=== PATIENT | female | born 1945 | race Hispanic/Latino ===

== ENCOUNTER 2019-05-08 10:52 | Outpatient (CLI) | payer MEDICARE, MEDICAID ==
--- NOTE | 2019-05-08 13:55 | CT ---
CT ABDOMEN AND PELVIS WITH IV AND ORAL CONTRAST: INDICATIONS: Abdominal pain. Left lower quadrant pain. COMPARISON: CT abdomen and pelvis from 01/12/2012. FINDINGS: Lung bases are clear. The liver, spleen, and pancreas are unremarkable. The stomach and duodenum are unremarkable. The adrenal glands appear normal. The kidneys show no evidence of hydronephrosis. There is a cystic lesion involving the anterior left kidney, which has increased in size from the prior exam and now measures approximately 1.7 cm. Ther e are other tiny, low density foci in both kidneys, which are too small to characterize but are consi stent with tiny cysts and appear stable. The urinary bladder is mildly distended, poorly evaluated d ue to spray artifact from the left hip prosthesis. Small bowel loops are of normal caliber. Colon unremarkable. Aorta of normal caliber with atheroscl erotic calcification. No adenopathy. Images through the pelvis show a mildly prominent uterus, which is stable from the prior exam. The m yometrium is mildly heterogeneous. There is suggestion of a small right ovarian cyst, measuring 1.2 cm. The pelvis is obscured due spray artifact from the left hip prosthesis. There is a new anterior abdominal wall hernia seen along the anterior abdominal wall when compared to the prior exam. This may represent a spigelian hernia. The hernia sac in the subcutaneous tissues measures 2.8 cm and contains mesenteric fat. There is density in the subcutaneous adipose tissue anteriorly, in the midline, just below the umbili cus, measuring approximately 1.5 cm. This is nonspecific and may be postoperative in nature. It is not fluid dense. IMPRESSION: 1. Evidence of new hernia involving the anterolateral abdominal wall, on the left, when compared to the prior examination. 2. Focal density in the anterior subcutaneous tissues, midline, just inferior to the umbilicus, whic h is nonspecific. 3. Prominent heterogeneous uterus is stable. Question small right ovarian cyst. 4. Renal cystic lesions, as described above. POS: [facility]
[2019-05-08] MEDS ORDERED: ISOVUE-370 76%-LOCM 1 ML ONE (16:27)
== END 2019-05-08 10:53 | disposition home or self-care (01) ==
LOC: BICCT 10:52
PROVIDERS: ATTEND Surgery
DX: R19.04 Left lower quadrant abdominal swelling, mass and lump (principal); K43.9 Ventral hernia without obstruction or gangrene; N28.1 Cyst of kidney, acquired
CPT/HCPCS: 74177; 82565; Q9966

== ENCOUNTER 2019-07-04 10:14 | Inpatient (IN) | payer MEDICARE, MEDICAID ==
[2019-07-04] MEDS ORDERED: Ketorolac Tromethamine 30 MG/ML VIAL ONE (10:42)
[2019-07-04] MEDS ORDERED: Fentanyl 100 MCG/2 ML VIAL ONE (10:44)
[2019-07-04 11:04] LABS: #Eosinphils 0.3 thou/uL (0.0-0.7); #Lymphocytes 1.8 thou/uL (1.20-3.40); #Monocytes 0.5 thou/uL (0.11-0.59); #Neutrophils 4.5 thou/uL (1.40-6.50); %Basophils 0.3 % (0.0-1.0); %Eosinophils 4.5 % (0.0-10.0); %Lymphocytes 25.6 % (21.0-51.0); %Monocytes 6.5 % (0.0-10.0); %Neutrophils 63.2 % (42.0-75.0); Hemoglobin 13.8 g/dL (12.0-16.0); Mean Corpuscular HGB CONC 34.2 g/dL (32.0-36.0); Mean Corpuscular Hemoglobin 30.9 pg (27.0-31.0); Mean Corpuscular Volume 90.3 fL (78.0-98.0); Mean Platelet Volume 8.9 fL (7.4-10.4); Platelet Count 189 thou/uL (130-400); Red Blood Cell (RBC) Count 4.46 mill/uL (4.20-5.40); White Blood Cell (WBC) Count 7.1 thou/uL (4.8-10.8)
[2019-07-04 11:28] LABS: Anion Gap 12 mmol/L (10-20); BUN (Urea Nitrogen) 12 mg/dL (9.8-20.1); Calc. Creatinine Clearance 47 mL/min (70-130); Calcium 9.5 mg/dL (7.8-10.44); Carbon Dioxide 28 mmol/L (23-31); Chloride 104 mmol/L (98-107); Estimated GFR-MDRD 67; Glucose 113 mg/dL (83-110); Potassium 4.3 mmol/L (3.5-5.1); Sodium 140 mmol/L (136-145)
[2019-07-04] MEDS ORDERED: Bupivacaine/Epinephrine 0.25% 30 ML VIAL ONE (11:45)
[2019-07-04] MEDS ORDERED: Lidocaine 2% PF 5 ML VIAL ONE (11:45)
[2019-07-04] MEDS ORDERED: PHENYLEPHRINE-NS 100 MCG/ML 10 ML SYRINGE ONE (11:51)
[2019-07-04] MEDS ORDERED: Ondansetron PF 4 MG/2 ML Vial ONE (11:51)
[2019-07-04] MEDS ORDERED: Rocuronium Bromide 10 MG/ML (10ML VIAL) ONE (11:51)
[2019-07-04] MEDS ORDERED: Lidocaine 1% PF 5 ML VIAL ONE (11:51)
[2019-07-04] MEDS ORDERED: Glycopyrrolate 0.2 MG/ML 5 ML SYRINGE ONE (11:51)
[2019-07-04] MEDS ORDERED: Dexamethasone 20 MG/5 ML VIAL ONE (11:51)
[2019-07-04] MEDS ORDERED: Phenylephrine HCL 10 MG/ML VIAL ONE (12:30)
[2019-07-04] MEDS ORDERED: HYDROcodone/Acetaminophen 5/325 mg Tablet ONE (15:32)
[2019-07-04] MEDS ORDERED: Morphine 2 MG/ML SYRINGE SLOW IVP PRN (17:45)
[2019-07-04 18:04] VITALS: BMI 33.7
[2019-07-04] MEDS ORDERED: traMADol HCl 50 MG TAB PO PRN (18:54)
[2019-07-04] MEDS: Gabapentin 300 MG CAP PO SCH (19:50)
[2019-07-04] MEDS ORDERED: Famotidine/PF 20 mg/2ml Vial SLOW IVP SCH (21:00)
[2019-07-04] MEDS ORDERED: Amlodipine 5 MG TAB PO SCH (21:00)
[2019-07-04] MEDS ORDERED: Calcium Carbonate 500 MG ChewTAB PO PRN (21:13)
[2019-07-05] MEDS: HYDROcodone/Acetaminophen 5/325 mg Tablet PO PRN ×3 (06:23→18:29)
[2019-07-05] MEDS: Gabapentin 300 MG CAP PO SCH ×2 (07:12→16:13)
[2019-07-05] MEDS ORDERED: Carvedilol 6.25 MG TAB PO SCH (09:00)
[2019-07-05] MEDS ORDERED: Sodium Chloride 0.9% 10 ML ONE (14:02)
[2019-07-05] MEDS ORDERED: Fentanyl 100 MCG/2 ML VIAL ONE ×2 (14:14→14:18)
[2019-07-05 15:55] VITALS: BP 144/68; TEMP 97.9
--- NOTE | 2019-07-06 23:11 | EKG ---
Test Reason : PREOP Blood Pressure : / mmHG Vent. Rate : 062 BPM Atrial Rate : 062 BPM P-R Int : 158 ms QRS Dur : 096 ms QT Int : 452 ms P-R-T Axes : 065 -06 102 degrees QTc Int : 458 ms Normal sinus rhythm with sinus arrhythmia Low voltage QRS T wave abnormality, consider lateral ischemia Abnormal ECG Confirmed by Beverly KIMBLE ([id number]) on 07/06/2019 11:10:37 PM Referred By: SHANKAR Confirmed By:Beverly KIMBLE
--- NOTE | 2019-07-13 13:13 | PDOC.OP ---
Operative Note - Operative Note Operative Note: PROCEDURE: Repair of incarcerated ventral incisional hernia with mesh SURGEON: Prabhu Gonzales M.D. DATE: 07/04/2019 PREOPERATIVE DIAGNOSIS: Incarcerated ventral incisional hernia POSTOPERATIVE DIAGNOSIS: Incarcerated ventral incisional hernia HISTORY: Patient with multiple hernias status post open and laparoscopic repair. She developed a tender nonreducible hernia at a lateral port site and desires repair of this. Open repair was recommended due to the incarcerated nature of the hernia. PROCEDURE IN DETAIL: After informed consent was obtained and appropriate preoperative antibiotics administered the patient was taken to the operative she was placed in supine position and general anesthesia was administered. She was prepped and draped in standard sterile fashion and local anesthesia infused the skin and subcutaneous tissues overlying the left lateral hernia site. A skin incision was made and dissection was carried down to the external oblique aponeurosis. Some fat was found herniating through this and the incision extended in the direction of the fibers. A large hernia was identified in the space between the internal and external oblique. This was dissected free of the surrounding tissues and was found to be protruding through a 2 cm defect in the internal oblique and transversalis. Once the adhesions were taken down the entire hernia sac, which contained fat only, was able to be reduced through the hernia defect. The space was then bluntly developed in the preperitoneal space by digital dissection and a 6.4 cm ventral X patch was placed into the preperitoneal space and confirmed to be expanded and flat against the muscle. The internal oblique fascia was then reapproximated with braided permanent suture incorporating the central strap into the closure. The external oblique fascia was also closed under direct vision with braided permanent suture. Irrigation was carried out between each layer of closure and additional local anesthesia infused into the muscle and subcutaneous tissues for postoperative pain control. The subcutaneous tissues were reapproximated with 3-0 Monocryl suture and the skin was closed with 4-0 subcuticular Monocryl suture. Dermabond dressings were placed and the patient was taken to recovery in good condition. Estimated blood loss is minimal. There were no complications. There were no specimens
== END 2019-07-05 18:57 | disposition home or self-care (01) | DRG 355 ==
LOC: SDC 10:14 → SURG A 16:20 → SDC 17:35
PROVIDERS: ADMIT Surgery; ATTEND Surgery
PROC: 0WUF0JZ Supplement Abdominal Wall with Synthetic Substitute, Open Approach (ICD-10-PCS; principal; 2019-07-04)
DX: K43.9 Ventral hernia without obstruction or gangrene (principal); I10 Essential (primary) hypertension; K21.9 Gastro-esophageal reflux disease without esophagitis; M19.90 Unspecified osteoarthritis, unspecified site; M81.0 Age-related osteoporosis without current pathological fracture; Z96.642 Presence of left artificial hip joint; Z87.891 Personal history of nicotine dependence; Z79.899 Other long term (current) drug therapy; Z90.49 Acquired absence of other specified parts of digestive tract
CPT/HCPCS: 36415; 80048; 85025; 93005; 93010; J0131; J0690; J1100; J1885; J2001; J2370; J2405; J3010; S0028

== ENCOUNTER 2019-08-15 17:26 | Inpatient (IN) | payer MEDICARE, MEDICAID ==
[~2019-08-15 17:26] MED LIST: Iopamidol-370 76% 500 ML 1 ML ONE
[2019-08-15] MEDS ORDERED: Morphine 4 MG/ML VIAL ONE ×2 (17:46→22:48)
[2019-08-15] MEDS ORDERED: Ondansetron PF 4 MG/2 ML Vial ONE (17:46)
[2019-08-15 18:11] LABS: #Eosinphils 0.3 thou/uL (0.0-0.7); #Lymphocytes 2.1 thou/uL (1.20-3.40); #Monocytes 0.6 thou/uL (0.11-0.59); #Neutrophils 7.3 thou/uL (1.40-6.50); %Basophils 0.5 % (0.0-1.0); %Eosinophils 2.8 % (0.0-10.0); %Lymphocytes 20.1 % (21.0-51.0); %Neutrophils 70.7 % (42.0-75.0); Mean Corpuscular HGB CONC 33.4 g/dL (32.0-36.0); Mean Corpuscular Volume 89.7 fL (78.0-98.0); Mean Platelet Volume 9.1 fL (7.4-10.4); Platelet Count 200 thou/uL (130-400); Red Blood Cell (RBC) Count 4.33 mill/uL (4.20-5.40); White Blood Cell (WBC) Count 10.2 thou/uL (4.8-10.8)
[2019-08-15 18:16] LABS: PTT 24.7 SEC (22.9-36.1); Prothrombin Time 13.1 SEC (12.0-14.7)
--- NOTE | 2019-08-15 18:41 | RAD ---
Radiograph left leg tibia-fibula 2 views: 08/15/2019 HISTORY: 74-year-old female with acute traumatic left leg pain due to fall FINDINGS: The tibial plateau and fibular head are excluded from the [id number] on the frontal projection. On the lateral view, comminuted fracture of the distal femur is demonstrated. No fracture of the tibia or fibula is identified. Diffuse osteopenia. IMPRESSION: 1. Proximal tibia and fibula excluded from the [id number] on frontal projection. 2. No fracture of tibia or fibula identified.
[2019-08-15 18:42] LABS: ALT (SGPT) 11 U/L (8-55); AST (SGOT) 21 U/L (5-34); Albumin 4.5 g/dL (3.4-4.8); Alkaline Phosphatase 68 U/L (40-110); Anion Gap 14 mmol/L (10-20); BUN (Urea Nitrogen) 15 mg/dL (9.8-20.1); Bilirubin, Total 1.3 mg/dL (0.2-1.2); Calc. Creatinine Clearance 0 mL/min (70-130); Calcium 9.7 mg/dL (7.8-10.44); Carbon Dioxide 25 mmol/L (23-31); Chloride 103 mmol/L (98-107); Estimated GFR-MDRD 59; Globulin 3.2 g/dL (2.4-3.5); Glucose 99 mg/dL (83-110); Potassium 3.7 mmol/L (3.5-5.1); Protein, Total 7.7 g/dL (6.0-8.3); Sodium 138 mmol/L (136-145)
--- NOTE | 2019-08-15 18:43 | RAD ---
Radiograph left knee 2 views: 08/15/2019 6:16 PM HISTORY: 74-year-old female status post acute traumatic injury due to fall FINDINGS: Significantly displaced, angulated comminuted fracture of distal femoral metaphysis. Anterior angulat ion of major fracture apex. Slight foreshortening. No fracture extension to femoral tibial articular surface identified. No dislocation of knee joint. Tibial plateau appears to be grossly inta ct. Fibular head appears to be intact. Suprapatellar small hematoma. IMPRESSION: Acute, traumatic, comminuted, significantly displaced and angulated fracture of the distal femur.
--- NOTE | 2019-08-15 18:45 | RAD ---
Radiograph pelvis one view: DATE: 08/15/2019 HISTORY: 74-year-old female with acute traumatic pelvic pain due to fall FINDINGS: Left hip replacement metallic prosthesis. No evidence of dislocation. Pelvic ring appears to be gross ly intact, with no grossly displaced fracture identified. However, the osteopenia and overlying bowel gas could obscure a fracture, especially of the sacrum. IMPRESSION: 1. No acute fracture identified. 2. Status post left hip replacement arthroplasty.
--- NOTE | 2019-08-15 18:49 | RAD ---
Exam: Left femur 2 views: HISTORY: Injury with pain following a trip and fall FINDINGS: Total left hip replacement. Very markedly comminuted displaced and angulated fracture of the distal f emoral metadiaphysis with marked posterior angulation and considerable resultant deformity. IMPRESSION: Very markedly displaced comminuted fracture of the distal femur including the metadiaphysis with claudette ed posterior angulation, foreshortening, and severe deformity.
[2019-08-15] MEDS ORDERED: Ketamine 50 MG/ML (10ML VIAL) ONE (19:29)
[2019-08-15] MEDS ORDERED: Fentanyl 100 MCG/2 ML VIAL ONE (21:02)
--- NOTE | 2019-08-15 21:59 | RAD ---
Exam: Left femur 2 views: HISTORY: Post reduction FINDINGS: Again noted is extensively comminuted displaced fracture through the distal femoral metadiaphysis wit h persistent foreshortening and malalignment but with less angulation deformity. Evidence for fat within the knee joint. IMPRESSION: Overall improvement in the position and alignment of the markedly comminuted distal femoral fracture with some persistent displacement and angulation. Evidence for fat within the knee joint fluid with a fat fluid level.
--- NOTE | 2019-08-15 22:39 | CT ---
Exam: CT angiogram left lower extremity with 3-D rendering: HISTORY: Comminuted distal femoral fracture. No dorsalis pedis pulse FINDINGS: Very markedly comminuted markedly displaced fracture of the distal femoral metadiaphysis. There is a fat fluid layer within the knee joint. Extensive soft tissue swelling around the fracture or evidence for posttraumatic hemorrhagic fluid. No evidence for traumatic injury of the superficial fem oral artery at the level of the fracture. The upper common femoral and superficial femoral arteries are somewhat poorly seen because of dense s usceptibility artifact from the metal. There is a [id number] stenosis, using Nascet Criteria, at the left common femoral artery. The superficial femoral artery is overall small in caliber with mu ltiple mid to high-grade areas of stenosis with associated calcified plaques. There are also multiple mid to high-grade stenosis at the level of the popliteal artery. There is near occlusion wit h associated calcified plaque of the anterior tibial artery. There is a very high-grade stenosis at the origin of the tibio-peroneal trunk. There is a very poorly defined peroneal artery. No evidence f or associated vascular injury at the site of the fracture. The exam did not completely include the calf or ankle. IMPRESSION: No evidence for associated arterial vascular injury at the site of the fracture. Extensive multilevel moderate to very severe stenotic changes including the left common femoral arter y, superficial femoral artery, popliteal artery, anterior tibial artery, tibial-peroneal trunk, and posterior tibial and peroneal arteries, which may well account for clinical absent pulse at the dorsa lis pedis artery.
[2019-08-15] MEDS ORDERED: Dextrose 5% in Water 1,000 ML IV PRN (22:56)
[2019-08-15] MEDS ORDERED: Dextrose 50% Abboject 50 ML SYRINGE SLOW IVP PRN (22:56)
[2019-08-15] MEDS ORDERED: Morphine 2 MG/ML SYRINGE SLOW IVP PRN (22:56)
[2019-08-15] MEDS ORDERED: Ondansetron ODT 4 MG TAB PO PRN (22:56)
[2019-08-15] MEDS ORDERED: hydrALAZINE 20 MG/ML VIAL SLOW IVP PRN (22:56)
[2019-08-15] MEDS ORDERED: Ondansetron PF 4 MG/2 ML Vial IVP PRN ×2 (22:56→23:02)
[2019-08-15] MEDS ORDERED: Cyclobenzaprine 10 MG TAB ONE (22:57)
[2019-08-15] MEDS ORDERED: Cyclobenzaprine 10 MG TAB PO PRN (23:04)
[2019-08-15 23:23] LABS: Phosphorus 2.9 mg/dL (2.3-4.7)
--- NOTE | 2019-08-15 23:30 | RAD ---
EXAM: Chest one view: HISTORY: Preoperative evaluation COMPARISON: 01/13/2012 FINDINGS: Stable old granulomatous disease. Heart size: Within normal limits. Lungs: Clear of acute process. No evidence for confluent pneumonia, pleural effusion, acute edema, or pneumothorax, or other signifi cant acute process. IMPRESSION: No significant acute intrathoracic disease. Atherosclerosis. Stable exam.
--- NOTE | 2019-08-15 23:31 | RAD ---
Exam: Left shoulder 3 views: HISTORY: Injury from a fall, pain COMPARISON: 03/31/2015 FINDINGS: Bony demineralization. Arthrosis and degenerative changes of the A/C joint and glenohumeral joint. No acute fracture or dislocation. IMPRESSION: Stable left shoulder. Bony demineralization. No acute fracture or dislocation.
[2019-08-16] MEDS: traMADol HCl 50 MG TAB PO SCH ×4 (01:14→18:58)
[2019-08-16] MEDS: Acetaminophen 1,000 MG in Premix Bag 1 BAG IVPB SCH ×4 (01:14→18:58)
[2019-08-16] MEDS: Sodium Chloride 0.9% 1,000 ML IV SCH ×2 (01:15→14:46)
[2019-08-16 01:37] VITALS: BMI 24.0
[2019-08-16] MEDS ORDERED: Potassium Phosphate 15 MMOL in Sodium Chloride 0.9% 250 ML 100 ML IVPB SCH (02:15)
[2019-08-16] MEDS ORDERED: Magnesium Sulfate 2 GM in Sodium Chloride 0.9% 100 ML IVPB SCH (02:15)
[2019-08-16] MEDS ORDERED: Magnesium 2 GM/50 ML 2 GM in Premix Bag 1 BAG IVPB SCH (02:45)
[2019-08-16 05:38] LABS: #Lymphocytes 1.9 thou/uL (1.20-3.40); #Monocytes 0.7 thou/uL (0.11-0.59); #Neutrophils 4.8 thou/uL (1.40-6.50); %Basophils 0.4 % (0.0-1.0); %Eosinophils 0.5 % (0.0-10.0); %Lymphocytes 25.4 % (21.0-51.0); %Monocytes 9.3 % (0.0-10.0); %Neutrophils 64.4 % (42.0-75.0); Hemoglobin 11.2 g/dL (12.0-16.0); Mean Corpuscular HGB CONC 33.8 g/dL (32.0-36.0); Mean Corpuscular Hemoglobin 30.3 pg (27.0-31.0); Mean Corpuscular Volume 89.5 fL (78.0-98.0); Mean Platelet Volume 9.2 fL (7.4-10.4); Platelet Count 181 thou/uL (130-400); RBC Distribution Width 12.1 % (11.5-14.5); White Blood Cell (WBC) Count 7.4 thou/uL (4.8-10.8)
[2019-08-16 05:58] LABS: Anion Gap 13 mmol/L (10-20); BUN (Urea Nitrogen) 18 mg/dL (9.8-20.1); Calc. Creatinine Clearance 42 mL/min (70-130); Carbon Dioxide 26 mmol/L (23-31); Chloride 100 mmol/L (98-107); Estimated GFR-MDRD 47; Glucose 117 mg/dL (83-110); Magnesium 3.4 mg/dL (1.6-2.6); Phosphorus 5.2 mg/dL (2.3-4.7); Potassium 3.8 mmol/L (3.5-5.1); Sodium 135 mmol/L (136-145)
[2019-08-16] MEDS ORDERED: Ibuprofen 200 MG TAB PO SCH (06:00)
--- NOTE | 2019-08-16 07:11 | HP ---
This is Funmilayo Barroso NP dictating a report for Prabhu Gonzales MD. CONSULTS: Orthopedic Surgery, Dr. Freitas. HISTORY OF PRESENT ILLNESS: This is a 74-year-old female, who lives in her home alone who reports falling from standing. Patient denies feeling weak, dizzy, or having any chest pain or shortness of breath prior to falling. Patient states she was attempting to move a chair when she fell, landing on her left leg. Patient reported immediate pain. Patient was evaluated in the emergency room and was found to have a left distal comminuted femur fracture. The fracture was reduced in the emergency room and a post CTA scan was obtained. ER reported patient did have diminished pulse and cool extremity before the reduction. Patient also complains of left shoulder pain. PAST MEDICAL HISTORY: Hypertension and hyperlipidemia. SURGICAL HISTORY: Hernia repair in June of 2019, left hip replacement. ALLERGIES: NO KNOWN DRUG ALLERGIES. CURRENT MEDICATIONS: Tramadol 50 mg p.r.n. SOCIAL HISTORY: Patient lives alone, denies alcohol use, former tobacco use approximately 10 years ago. Patient ambulates without any assistance. REVIEW OF SYSTEMS: A 10-point review of systems is negative unless otherwise indicated in the above HPI. PHYSICAL EXAMINATION: VITAL SIGNS: Blood pressure 107/79, pulse 98, respirations 16, SpO2 of 97% on 2 L nasal cannula, and temperature 98.2. GENERAL: Elderly female, English-speaking only, mail clerk at bedside, in no acute distress. HEENT: Head is atraumatic and normocephalic. Pupils are equal, bright, bilateral, extraocular muscles intact, mucous membranes moist. NECK: Normal range of motion. No cervical tenderness. Trachea midline. RESPIRATORY: Good inspiratory and expiratory effort. Bilateral breath sounds clear, no wheezing, rales, or rhonchi. CARDIOVASCULAR: Regular rate, regular rhythm, no murmurs. ABDOMEN: Soft, nontender, and nondistended. BACK: Normal inspection, normal range of motion, no spine tenderness. EXTREMITIES: Moves all extremities, positive sensation and movement intact in all extremities. Cap refill less than 2 seconds in left lower extremity, splint to left lower extremity in place. DIAGNOSTICS: 1. Left tib-fib x-ray, no fracture of the tibia or fibula identified. 2. Left femur x-ray, very markedly displaced comminuted fracture of the distal femur including metaphysis with marked posterior angulation, foreshortening, and severe deformity. 3. Left knee x-ray, displaced and angulated fracture of the distal femur. 4. Pelvis x-ray, no acute fracture identified, status post left hip replacement arthroplasty. 5. Postreduction left femur x-ray, impression, overall improvement in position and alignment of the markedly comminuted displaced femoral fracture. Evidence for fat within the knee joint fluid with a fat fluid level. 6. Lower extremity CTA, impression, no evidence for associated arterial vascular injury at the site of the fracture. 7. Chest x-ray, impression, no significant acute intrathoracic disease, arthrosclerosis, stable exam. 8. Left shoulder x-ray, impression, no acute fracture or dislocation. 9. A 12-lead EKG, normal sinus rhythm without any ST or T-wave abnormalities. LABORATORY DATA: WBC 10.2, RBC 4.33, hemoglobin 13.0, hematocrit 38.8, and platelets 200. PT 13.1, INR 1.0, and APTT 24.7. Sodium 138, potassium 3.7, chloride 103, BUN 15, creatinine 0.93, estimated GFR 59, glucose 99, phosphorus 2.9, and magnesium 1.9. ASSESSMENT: 1. Status post ground level fall. 2. Left distal comminuted femur fracture. 3. Acute traumatic pain. 4. History of hypertension. PLAN: Admit the patient to the surgical ortho floor. Patient will be n.p.o. for plans repair of her left femur fracture with Dr. Freitas. We will start maintenance IV fluids. We will place the patient on a pain regimen. We will place a PT/OT consult to evaluate and treat postop. We will place a rehab screen as the patient will most likely need additional physical therapy postop. The plan was discussed with the patient and family who agree. The plan will be discussed with the attending after this dictation. Job ID: [id number]
[2019-08-16] MEDS ORDERED: CEFAZOLIN 2 GM in Premix Bag 1 BAG IVPB SCH (08:00)
--- NOTE | 2019-08-16 08:25 | CON ---
DATE OF CONSULTATION: 08/16/2019 REQUESTING PHYSICIAN: Trauma Services. CONSULTING PHYSICIAN: Jose Freitas MD REASON FOR CONSULTATION: Left femur fracture. HISTORY OF PRESENT ILLNESS: This is a 74-year-old female who lives at home alone, who reports moving a chair into her kitchen and falling over. She had immediate pain to the left thigh and was unable to bear weight when she fell. She denies any head injury or loss of consciousness during this injury. She was brought to the emergency department by EMS and was evaluated and found to have a left distal comminuted femur fracture. We have been consulted for this reason. The fracture was reduced in the emergency department with overall improved alignment. The patient did have a CTA scan and Doppler studies done in order to ensure her vascular status was intact. Currently, at bedside, she reports that the pain is improved with rest and since the splint application. She is primarily Chadian-speaking and a antique refinisher was used today; however, patient still appears to be somewhat poor historian and therefore history is somewhat limited. Majority of information has been obtained from records today. PAST MEDICAL HISTORY: Significant for hypertension and hyperlipidemia. PAST SURGICAL HISTORY: Includes a hernia repair in June of this year. She has also had a left hip hemiarthroplasty done in 2011. FAMILY HISTORY: Reviewed and noncontributory. ALLERGIES: NO KNOWN DRUG ALLERGIES. SOCIAL HISTORY: The patient lives alone. She denies any alcohol use. Former tobacco use approximately 10 years ago. She ambulates without any assistive device. REVIEW OF SYSTEMS: A 10-point review of systems is limited secondary to patient being a poor historian. PHYSICAL EXAMINATION: VITAL SIGNS: Current vital signs including temperature of 98.1, pulse of 81, respiratory rate of 16, blood pressure of 107/69, and O2 saturation of 95% on 2 L nasal cannula. GENERAL: The patient is awake and alert. She is pleasant and cooperative with exam today. She is lying supine in bed. No family is currently at bedside. HEENT: Head is normocephalic and atraumatic. Of note, she does have dentures that appear to be loose. NECK: Supple. Trachea midline. LUNGS: Breathing nonlabored. EXTREMITIES: The left lower extremity was evaluated. There is a long leg splint intact. She is able to move her toes. Skin to the thigh appears to be intact without any lesions or rashes, however, this is limited secondary to the splint application. Remainder of extremities evaluated. No acute deformities or obvious injuries are noted. RADIOGRAPHIC IMAGING: Reviewed today including left femur, left knee, left tibia, and pelvis x-rays demonstrate what appears to be a distal femur fracture on the left that is comminuted and displaced. There is mild shortening. There appears to be a left hip hemiarthroplasty prosthesis in place and this fracture is distal to this prosthesis. No fractures visualized in the tibia or fibula. LABORATORY DATA: Reviewed, which shows a hemoglobin of 13.0, hematocrit of 38.8, white blood cell count of 10.2, and platelet count of 200. PT/INR within normal limits. ASSESSMENT: Status post ground level fall with left comminuted distal femur fracture. PLAN: The patient has been n.p.o. since yesterday evening. We would like to proceed with surgery later this afternoon in order to restore her anatomy and promote function. I have discussed this procedure in detail with her today. She seems amenable to this plan. She currently has no family at bedside. We will plan for open reduction and internal fixation of the left femur fracture this afternoon. Postoperatively, we will plan for likely rehab or snf facility. We will get this setup. On behalf of Dr. Jose Freitas. Job ID: [id number]
[2019-08-16] MEDS ORDERED: Gabapentin 300 MG CAP PO SCH (09:00)
[2019-08-16] MEDS ORDERED: Dexamethasone 20 MG/5 ML VIAL ONE (10:30)
[2019-08-16] MEDS ORDERED: PROPOFOL 200 MG/20 ML VIAL ONE (10:30)
[2019-08-16] MEDS ORDERED: Ondansetron PF 4 MG/2 ML Vial ONE (10:30)
[2019-08-16] MEDS ORDERED: PHENYLEPHRINE-NS 100 MCG/ML 10 ML SYRINGE ONE (10:30)
[2019-08-16] MEDS ORDERED: Bupivacaine HCl 0.5%/Epinephrine 1:200,000/PF 30 ml Vial ONE (10:30)
[2019-08-16] MEDS: Carvedilol 6.25 MG TAB PO SCH (10:32)
[2019-08-16] MEDS: Famotidine 20 MG TAB PO SCH (10:32)
[2019-08-16] MEDS: Polyethylene Glycol 3350 17 GM Packet PO SCH (10:41)
[2019-08-16] MEDS ORDERED: Fentanyl 100 MCG/2 ML VIAL ONE ×2 (13:38→13:55)
[2019-08-16] MEDS ORDERED: Bupivacaine PF 0.5% 30 ML VIAL ONE (13:38)
[2019-08-16] MEDS ORDERED: Midazolam HCl 2 mg/2 ml Vial ONE (13:38)
--- NOTE | 2019-08-16 14:06 | PRG ---
DATE OF SERVICE: 08/16/2019 SUBJECTIVE: The patient was seen this morning during rounds. She was resting comfortably in bed, easily arousable. She reported she was having significant pain and asked for additional pain medication. She has been n.p.o. She is going to the OR today with Dr. Freitas for fixation of her left distal femur fracture. OBJECTIVE: VITAL SIGNS: Temperature 98.1, pulse 87, respirations 16, oxygen saturation 99% on 2 L nasal cannula, blood pressure 145/82. GENERAL: Well-appearing elderly female, sitting in bed with no signs of acute distress. PULMONARY: Equal chest rise and fall. Clear breath sounds bilaterally. No signs of acute respiratory distress. CARDIAC: Regular rate and rhythm. No murmurs, gallops, or rubs. GI: Abdomen is soft, nontender, and nondistended. EXTREMITIES: 2+ pulses in all extremities. Gross motor and sensation are intact. No significant swelling noted. NEUROLOGIC: GCS is 15. LABORATORY FINDINGS: White count 7.4, hemoglobin 11.2, hematocrit 33.1, platelets 181. INR 1.0. Sodium 135, potassium 3.8, chloride 100, bicarb 26, BUN 18, creatinine 1.13, glucose 117, phosphorus 5.2, magnesium 3.4. DIAGNOSTIC FINDINGS: There are no new diagnostic findings to report. ASSESSMENT: 1. Status post mechanical fall from standing. 2. Left comminuted distal femur fracture. 3. Acute kidney injury, likely secondary to IV contrast the patient received yesterday in the emergency department for CTA of the lower extremity. 4. History of hypertension and hyperlipidemia. 5. Acute traumatic pain secondary to distal femur fracture. PLAN: The patient is n.p.o. today with normal saline at 75 an hour. She is pending OR today with Dr. Freitas for fixation of the femur fracture. We will continue her IV fluids for now and repeat blood work in the morning. We will closely trend her kidney function secondary to IV contrast-induced acute kidney injury. She has been restarted on her home medications as clinically indicated. We will continue to hold her home amlodipine for now. She usually takes it in the evening, and she may have some postoperative hypotension that we will continue to monitor. Postoperatively, she can have a heart-healthy diet. She will work with Physical and Occupational Therapy. We will request placement for acute rehab facility when she is ready for discharge. The patient was seen and examined by Dr. Jaffe and myself this morning during rounds. Job ID: [id number]
[2019-08-16] MEDS: Gabapentin 300 MG CAP PO SCH ×2 (14:47→21:08)
[2019-08-16] MEDS ORDERED: Promethazine HCl 25 MG/ML VIAL IM PRN (16:28)
[2019-08-16] MEDS ORDERED: Ondansetron HCl/PF 4 MG/2 ML Vial IVP PRN (16:28)
[2019-08-16] MEDS ORDERED: Promethazine HCl 25 MG/ML VIAL SLOW IVP PRN (16:28)
--- NOTE | 2019-08-16 16:37 | RAD ---
Exam:Exam: Intraprocedure fluoroscopy HISTORY: Internal fixation Exposure: 78.2 seconds. 4.97 mCi FINDINGS: 4 fluoroscopic views demonstrate placement of a metallic side plate with multiple screws tr aversing the majority of the femur. Distal femur fracture is identified. IMPRESSION: Fluoroscopy as above.
[2019-08-16] MEDS ORDERED: Prevnar 13-Val Conj/PF 0.5 ML SYRINGE IM ONE (21:00)
[2019-08-16] MEDS ORDERED: FLU VACC TS2019-20(65YR UP)/PF 180 MCG/0.5 ML SYRINGE IM ONE (21:00)
[2019-08-16] MEDS: CEFAZOLIN 2 GM in Premix Bag 1 BAG IVPB SCH (21:19)
[2019-08-17] MEDS: Acetaminophen 500 MG TAB PO SCH ×4 (00:50→18:01)
[2019-08-17] MEDS: traMADol HCl 50 MG TAB PO SCH ×4 (00:50→18:00)
--- NOTE | 2019-08-17 01:06 | PRG ---
DATE OF SERVICE: 08/16/2019 SUBJECTIVE: The patient remains on the surgical floor. The patient is postop repair of her left displaced distal femur fracture earlier today. The patient is currently awake, alert, in no distress. The patient is eating and drinking well. The patient's pain is well controlled at this time. The patient is voiding per bedpan. OBJECTIVE: Vitals are stable. The patient remains afebrile. PLAN: Continue supportive care. We will have Physical and Occupational Therapy work with the patient in the morning. We will continue to monitor patient's urinary output. Job ID: [id number]
[2019-08-17] MEDS: CEFAZOLIN 2 GM in Premix Bag 1 BAG IVPB SCH ×2 (05:40→14:31)
[2019-08-17 05:58] LABS: #Monocytes 0.4 thou/uL (0.11-0.59); #Neutrophils 6.2 thou/uL (1.40-6.50); %Basophils 0.3 % (0.0-1.0); %Eosinophils 0.1 % (0.0-10.0); %Lymphocytes 13.1 % (21.0-51.0); %Monocytes 5.5 % (0.0-10.0); %Neutrophils 81.1 % (42.0-75.0); Hemoglobin 8.7 g/dL (12.0-16.0); Mean Corpuscular HGB CONC 34.2 g/dL (32.0-36.0); Mean Corpuscular Hemoglobin 30.9 pg (27.0-31.0); Mean Corpuscular Volume 90.4 fL (78.0-98.0); Mean Platelet Volume 9.5 fL (7.4-10.4); Platelet Count 139 thou/uL (130-400); White Blood Cell (WBC) Count 7.6 thou/uL (4.8-10.8)
[2019-08-17 06:23] LABS: Anion Gap 9 mmol/L (10-20); BUN (Urea Nitrogen) 18 mg/dL (9.8-20.1); Calc. Creatinine Clearance 46 mL/min (70-130); Calcium 7.8 mg/dL (7.8-10.44); Carbon Dioxide 26 mmol/L (23-31); Chloride 104 mmol/L (98-107); Estimated GFR-MDRD 52; Glucose 130 mg/dL (83-110); Magnesium 2.3 mg/dL (1.6-2.6); Phosphorus 3.2 mg/dL (2.3-4.7); Potassium 4.3 mmol/L (3.5-5.1); Sodium 135 mmol/L (136-145)
[2019-08-17] MEDS: Polyethylene Glycol 3350 17 GM Packet PO SCH (08:15)
[2019-08-17] MEDS: Famotidine 20 MG TAB PO SCH (08:15)
[2019-08-17] MEDS: Gabapentin 300 MG CAP PO SCH ×3 (08:15→19:38)
[2019-08-17] MEDS: Carvedilol 6.25 MG TAB PO SCH (08:20)
[2019-08-17] MEDS: Ascorbic Acid 500 mg Chewable Tablet PO SCH (17:59)
[2019-08-17] MEDS: Ferrous Sulfate 325 MG TAB PO SCH (17:59)
[2019-08-17] MEDS: Heparin 5,000 UNITS/ML VIAL SC SCH (19:38)
--- NOTE | 2019-08-17 20:17 | PRG ---
DATE OF SERVICE: 08/17/2019 SUBJECTIVE: The patient was seen this morning, sitting up in bed with no signs of acute distress. Family was at bedside. The patient reported pain was well controlled. She was tolerating her breakfast. She was voiding without difficulties. OBJECTIVE: VITAL SIGNS: Temperature 98.5, pulse 82, respirations 18, oxygen saturation 95% on room air, blood pressure 106/58. GENERAL: Well-appearing elderly female, sitting up in bed with no signs of acute distress. PULMONARY: Equal chest rise and fall. Clear breath sounds bilaterally. No signs of acute respiratory distress. CARDIAC: Regular rate and rhythm. No murmurs, gallops, or rubs. GI: Abdomen is soft, nontender, nondistended. EXTREMITIES: 2+ pulses in all extremities. Gross motor and sensation are intact. No significant swelling. Knee immobilizer to left lower extremity is in place and fitting appropriately. LABORATORY FINDINGS: White count 7.6, hemoglobin 8.7, hematocrit 25.3, platelets 139. Sodium 135, potassium 4.3, bicarb 104, BUN 18, creatinine 1.04, glucose 130, phosphorus 3.2, and magnesium 2.3. DIAGNOSTIC FINDINGS: There are no new diagnostic findings to report. ASSESSMENT: 1. Status post mechanical fall. 2. Left distal femur fracture, status post repair. 3. Acute kidney injury, resolved. 4. History of hypertension and hyperlipidemia. PLAN: Continue current diet and pain medications. Continue current home medications as clinically indicated. Continue physical and occupational therapy. The patient is pending placement at acute rehab facility. She is ready for discharge at this time. The patient was seen and examined by Dr. Jaffe before this dictation. Job ID: [id number]
--- NOTE | 2019-08-18 01:35 | PRG ---
DATE OF SERVICE: 08/17/2019 SUBJECTIVE: The patient was seen this evening on the surgical floor. The patient currently is sleeping comfortably. The patient is in no acute distress. OBJECTIVE: VITAL SIGNS: Stable, afebrile. PLAN: 1. Continue supportive care and pain regimen. 2. Continue physical and occupational therapy. 3. The patient is pending placement to inpatient rehab. Job ID: [id number] MTDD
[2019-08-18] MEDS: Acetaminophen 500 MG TAB PO SCH ×4 (02:05→17:04)
[2019-08-18] MEDS: traMADol HCl 50 MG TAB PO SCH ×4 (02:05→17:04)
[2019-08-18] MEDS: traMADol HCl 50 MG TAB PO PRN (04:05)
[2019-08-18 06:36] LABS: #Basophils 0.1 thou/uL (0.0-0.2); #Eosinphils 0.2 thou/uL (0.0-0.7); #Lymphocytes 2.2 thou/uL (1.20-3.40); #Monocytes 0.8 thou/uL (0.11-0.59); #Neutrophils 5.8 thou/uL (1.40-6.50); %Basophils 0.7 % (0.0-1.0); %Eosinophils 2.1 % (0.0-10.0); %Lymphocytes 24.2 % (21.0-51.0); %Monocytes 9.2 % (0.0-10.0); %Neutrophils 63.8 % (42.0-75.0); Hemoglobin 9.7 g/dL (12.0-16.0); Mean Corpuscular HGB CONC 33.2 g/dL (32.0-36.0); Mean Corpuscular Hemoglobin 30.1 pg (27.0-31.0); Mean Corpuscular Volume 90.7 fL (78.0-98.0); Mean Platelet Volume 9.7 fL (7.4-10.4); Platelet Count 175 thou/uL (130-400); RBC Distribution Width 12.4 % (11.5-14.5); Red Blood Cell (RBC) Count 3.23 mill/uL (4.20-5.40); White Blood Cell (WBC) Count 9.2 thou/uL (4.8-10.8)
[2019-08-18 07:05] LABS: Anion Gap 9 mmol/L (10-20); BUN (Urea Nitrogen) 17 mg/dL (9.8-20.1); Calc. Creatinine Clearance 56 mL/min (70-130); Calcium 8.6 mg/dL (7.8-10.44); Carbon Dioxide 31 mmol/L (23-31); Chloride 106 mmol/L (98-107); Estimated GFR-MDRD 64; Glucose 108 mg/dL (83-110); Magnesium 2.1 mg/dL (1.6-2.6); Phosphorus 1.9 mg/dL (2.3-4.7); Potassium 4.2 mmol/L (3.5-5.1); Sodium 142 mmol/L (136-145)
[2019-08-18] MEDS ORDERED: PHOS-NAK 1 PKT PACK PO SCH (08:00)
--- NOTE | 2019-08-18 10:49 | OP ---
DATE OF PROCEDURE: 08/16/2019 PREOPERATIVE DIAGNOSIS: Comminuted suprapatellar distal femur fracture, left. POSTOPERATIVE DIAGNOSIS: Comminuted suprapatellar distal femur fracture, left. PROCEDURE PERFORMED: Open reduction and internal fixation of left distal femur. ANESTHESIA: General. PROFESSOR OF ENGLISH: John. ESTIMATED BLOOD LOSS: 200 mL. IMPLANTS: Synthes curved condylar distal femoral plate, 14 hole. COMPLICATIONS: None. DRAINS: None. SPECIMEN: None. OUTCOME: Near-anatomic alignment. INDICATIONS: The patient is a 74-year-old lady, status post accident sustaining a left distal femur fracture. This is displaced and comminuted and below a hip hemiarthroplasty. After discussion with the patient including risks and benefits, we decided to proceed with open reduction and internal fixation. Informed consent has been obtained, I believe all questions have been answered. DESCRIPTION OF PROCEDURE: The patient was brought to the operating room and a time-out was performed followed by induction of general anesthesia. Next, she was positioned supine on the OR table and a sterile prep and drape was performed of the left lower extremity. Next, a small stab wound was made at the anterior thigh distal to the stem of her hip prosthesis. Steinmann pin was then inserted in the femur. A second small stab wound was made in the proximal tibia. Again, a Steinmann pin inserted and then the femoral distractor applied. With distraction of the leg, the fragments could be brought out to a near anatomic alignment at least with hinduism of gross alignment. Once performed, a vertical incision was made centered over the lateral epicondyle of the distal femur. After skin was sharply incised, dissection was carried down through the IT band, reflecting it superiorly and posteriorly and then the vastus lateralis was reflected anteriorly gaining access to the lateral cortex of the distal femur. Next, a 14 hole curved condylar plate was passed from this incision site up along the lateral cortex of the femur. Once appropriately positioned, the centering pin was applied in the distal segment of the plate and then a cortical screw was applied proximally through a small stab wound using the outrigger jig. Once the cortical screw was applied, the plate was then further adjusted and held in place while locking screws were applied distally. A combination of locking and nonlocking screws were then used to affix the plate to the cortex of the femur. With completion of this, there was found to be hinduism of gross architecture of this leg with half screws placed up along the femoral stem to try and minimize stress riser. Following final x-rays, the wounds were irrigated. The small stab wounds from the screws placed through the outrigger jig were closed with madie. The distal wound was closed in layers with 0 Vicryl for the IT band followed by 2-0 Vicryl and then madie for the skin. A Xeroform gauze, Webril, and knee immobilizer was applied to the leg and then the patient was transferred to recovery room in stable condition. There were no complications. She tolerated the procedure well. Job ID: [id number]
[2019-08-18] MEDS: Carvedilol 6.25 MG TAB PO SCH (10:54)
[2019-08-18] MEDS: Gabapentin 300 MG CAP PO SCH ×3 (10:54→21:54)
[2019-08-18] MEDS: Ferrous Sulfate 325 MG TAB PO SCH ×2 (10:54→17:04)
[2019-08-18] MEDS: Heparin 5,000 UNITS/ML VIAL SC SCH ×3 (10:55→21:54)
[2019-08-18] MEDS: Ascorbic Acid 500 mg Chewable Tablet PO SCH ×2 (10:55→17:04)
[2019-08-18] MEDS: Polyethylene Glycol 3350 17 GM Packet PO SCH (10:55)
--- NOTE | 2019-08-18 16:27 | PRG ---
DATE OF SERVICE: 08/18/2019 SUBJECTIVE: The patient was seen this morning, sitting up in bed with no signs of acute distress. She reported her pain was well controlled, but was concerned about increased swelling to her lower extremity. Dr. Jaffe did explain to her that will improve as the patient starts to mobilize more. She also expressed that she would prefer to put weight on that lower extremity, but we re-educated her on the importance of not bearing weight on the broken extremity. She is tolerating a regular diet and she is working with Physical and Occupational therapy without any issues. OBJECTIVE: VITAL SIGNS: Temperature 98.5, pulse 87, respirations 20, oxygen saturation 97% on room air, blood pressure 158/76. GENERAL: Well-appearing elderly female, lying in bed with no signs of acute distress. PULMONARY: Equal chest rise and fall. Clear breath sounds bilaterally. No signs of acute respiratory distress. CARDIAC: Regular rate and rhythm. No murmurs, gallops, or rubs. GI: Abdomen is soft, nontender, nondistended. EXTREMITIES: 2+ pulses in all extremities. Gross motor and sensation are intact. Left lower extremity is in knee immobilizer and fits appropriately. NEUROLOGIC: GCS is 15. LABORATORY FINDINGS: White count 9.2, hemoglobin 9.7, hematocrit 29.3, platelets 175. Sodium 142, potassium 4.2, chloride 106, bicarb 31, BUN 7, creatinine 0.86, phosphorus is 1.9, magnesium is 2.1. DIAGNOSTIC FINDINGS: There are no new diagnostic findings to report. ASSESSMENT: 1. Status post mechanical fall from standing. 2. Left distal femur fracture, status post repair. 3. Acute kidney injury, resolved. 4. History of hypertension and hyperlipidemia. PLAN: We will continue the patient's home medications as well as her current diet and pain regimen. She will continue to work with Physical and Occupational Therapy and we will provide supportive care. She is pending placement at the [facility] facility as she was denied from acute rehab. However, she is ready for discharge at this time and can be discharged whenever her insurance approves her stay. The patient was seen and examined by Dr. Jaffe and myself this morning during rounds. Job ID: [id number]
--- NOTE | 2019-08-18 21:47 | RAD ---
XR Chest 1 View Portable History: Coarse lung sounds Comparison: Radiograph August 15, 2019 Findings: Lungs are clear. No pneumothorax. No effusion. Calcified hilar lymph nodes. Impression: No acute intrathoracic abnormality.
[2019-08-18] MEDS: Amlodipine 5 MG TAB PO SCH (21:54)
[2019-08-19] MEDS: traMADol HCl 50 MG TAB PO SCH ×4 (00:12→17:47)
[2019-08-19] MEDS: Acetaminophen 500 MG TAB PO SCH ×4 (00:12→17:45)
--- NOTE | 2019-08-19 00:38 | PRG ---
DATE OF SERVICE: 08/18/2019 SUBJECTIVE: The patient was seen this evening sitting up in hospital bed. The patient remains on the surgical floor postop day #2, status post left comminuted displaced distal femur fracture repair. The patient does report a cough. The patient denies any chest pain or shortness of breath. The patient is tolerating a regular diet, and able to use her incentive spirometer. OBJECTIVE: VITAL SIGNS: Stable, afebrile. GENERAL: Well-appearing elderly female, lying in hospital bed. Positive nonproductive cough. PULMONARY: Equal chest rise and fall, bilateral breath sounds with expiratory wheezing and scattered coarse rhonchi. No respiratory distress. CARDIAC: Regular rate, regular rhythm. GI: Abdomen is soft, nontender, and nondistended. EXTREMITIES: 2+ pulses in all extremities. Gross motor and sensation are intact. Left lower extremity is in a knee immobilizer that is appropriately. NEUROLOGIC: GCS 15. LABORATORY DATA: BNP 167.2. DIAGNOSTIC STUDIES: Chest x-ray, impression, no acute intrathoracic abnormality, no pneumothorax, lungs are clear. No effusion. ASSESSMENT: 1. Status post mechanical fall from standing. 2. Left distal femur fracture, status post repair. 3. Acute kidney injury, resolved. 4. Cough likely secondary to atelectasis. 5. History of hypertension and hyperlipidemia. PLAN: We will schedule neb treatments. We will encourage pulmonary toilet. Increase physical and occupational therapy. We will have the patient up out of the bed during the day for most of the day. We will continue regular diet. Job ID: [id number]
[2019-08-19] MEDS: Polyethylene Glycol 3350 17 GM Packet PO SCH (08:37)
[2019-08-19] MEDS: Gabapentin 300 MG CAP PO SCH ×3 (08:38→21:14)
[2019-08-19] MEDS: Ascorbic Acid 500 mg Chewable Tablet PO SCH ×2 (08:38→17:45)
[2019-08-19] MEDS: Carvedilol 6.25 MG TAB PO SCH (08:39)
[2019-08-19] MEDS: Heparin 5,000 UNITS/ML VIAL SC SCH ×3 (08:39→21:14)
[2019-08-19] MEDS: Ferrous Sulfate 325 MG TAB PO SCH ×2 (08:39→17:45)
--- NOTE | 2019-08-19 12:08 | PRG ---
DATE OF SERVICE: 08/19/2019 SUBJECTIVE: The patient was seen this morning sitting up in bed with no signs of acute distress. Overnight, the patient reported some shortness of breath. Chest x-ray demonstrated no signs of infection or fluid overload. She received nebulizer treatments and this morning she is breathing comfortably with no nasal cannula oxygen and her breath sounds are clear and equal bilaterally. She has no complaints at the time of my evaluation. OBJECTIVE: VITAL SIGNS: Temperature 98, pulse 87, pulse 16, oxygen saturation 93% on room air, blood pressure 132/74. GENERAL: Well-appearing elderly female, lying in bed with no signs of acute distress. PULMONARY: Equal chest rise and fall. Clear breath sounds bilaterally. No signs of acute respiratory distress. CARDIAC: Regular rate and rhythm. No murmurs, gallops, or rubs. GI: Abdomen is soft, nontender, nondistended. EXTREMITIES: 2+ pulses in all extremities. Gross motor and sensation are intact. No significant swelling noted. Left lower extremity with knee immobilizer in place. NEUROLOGIC: GCS is 15. ASSESSMENT: 1. Status post mechanical fall from standing. 2. Left comminuted displaced distal femur fracture, status post repair. 3. Acute kidney injury, resolved. 4. History of hypertension and hyperlipidemia. PLAN: Continue current diet and pain regimen. The patient is restarted on her home medications. Continue physical and occupational therapy. The patient is ready for discharge at this time and is pending placement at a [facility] facility. This patient was discussed with Dr. Grubbs before this dictation. Job ID: [id number]
[2019-08-19] MEDS: Amlodipine 5 MG TAB PO SCH (21:14)
--- NOTE | 2019-08-19 21:34 | PRG ---
DATE OF SERVICE: 08/19/2019 SUBJECTIVE: This is a 74-year-old female, who is status post mechanical fall resulting in a left distal femur fracture. She is postop day 3, status post repair. Upon my evaluation this evening, the patient vocalized no complaint. OBJECTIVE: VITAL SIGNS: Reviewed and stable, as documented in the electronic medical record. The patient is afebrile. GENERAL: Elderly appearing female, in no acute distress, resting in bed. PULMONARY: Normal work of breathing. Symmetric rise. CARDIOVASCULAR: Regular rate and rhythm. GI: Abdomen is soft, nontender, and nondistended. MUSCULOSKELETAL: Moves all extremities x4. NEUROLOGIC: GCS is 15. ASSESSMENT: 1. Status post mechanical fall. 2. Left distal femur fracture, postop day 3, status post repair. 3. Acute kidney injury, improved. 4. Cough, improving. 5. History of hypertension. PLAN: The patient's cough has improved significantly. She reports no further complaints. She was encouraged to use her incentive spirometry. Family is at bedside and also discussed with them. Continue supportive care as ordered. Plan of care discussed with the patient and family at bedside and all questions were answered prior to this dictation. Job ID: [id number]
[2019-08-20] MEDS: Acetaminophen 500 MG TAB PO SCH ×4 (01:05→17:16)
[2019-08-20] MEDS: traMADol HCl 50 MG TAB PO SCH ×4 (01:05→17:15)
[2019-08-20] MEDS: Heparin 5,000 UNITS/ML VIAL SC SCH ×3 (08:43→20:52)
[2019-08-20] MEDS: Ascorbic Acid 500 mg Chewable Tablet PO SCH ×2 (08:44→17:16)
[2019-08-20] MEDS: Ferrous Sulfate 325 MG TAB PO SCH ×2 (08:44→17:16)
[2019-08-20] MEDS: Gabapentin 300 MG CAP PO SCH ×3 (08:44→20:52)
[2019-08-20] MEDS: Carvedilol 6.25 MG TAB PO SCH (08:44)
[2019-08-20] MEDS: Polyethylene Glycol 3350 17 GM Packet PO SCH (08:55)
--- NOTE | 2019-08-20 09:07 | PRG ---
DATE OF SERVICE: 08/20/2019 SUBJECTIVE: Mouna is a 74-year-old female, postop day 3 from a left distal femoral open reduction and internal fixation. She is in good spirits this morning and doing very well. Understand through equine manager, she has very little pain. OBJECTIVE: EXTREMITIES: Dressings taken down. Incision appears incredibly clean. There is no strike through. No bleeding. Carrington are intact. She is neurovascularly intact in the left lower extremity. Rotation looks good. IMPRESSION: A 74-year-old female, postop day 3, left distal femoral open reduction and internal fixation, doing incredibly well. PLAN: Defer for trauma for placement. Continue to follow. Re-dress incision. Job ID: [id number]
--- NOTE | 2019-08-20 10:07 | PRG ---
DATE OF SERVICE: 08/20/2019 SUBJECTIVE: The patient was seen this morning, lying in bed with no signs of acute distress. She was having dressing changes to her left upper extremity. She states that she slept well overnight and is tolerating her diet. She has been working with physical and occupational therapist and has been able to get around with a walker without putting weight on her left lower extremity. OBJECTIVE: VITAL SIGNS: Temperature 98.5, pulse 95, respirations 16, oxygen saturation 92% on room air, and blood pressure 124/72. GENERAL: Well-appearing elderly female, lying in bed with no signs of acute distress. PULMONARY: Equal chest rise and fall. Clear breath sounds bilaterally. No signs of acute respiratory distress. CARDIAC: Regular rate and rhythm. No murmurs, gallops, rubs. GI: Abdomen is soft, nontender, and nondistended. EXTREMITIES: 2+ pulses in all extremities. Gross motor and sensation are intact. Left lower extremity with wounds that are clean, dry, and intact with no signs of infection. Left lower extremity with knee immobilizer. NEUROLOGIC: GCS of 15. LABORATORY FINDINGS: There are no new laboratory findings to discuss. DIAGNOSTIC FINDINGS: There are no new diagnostic findings to discuss. ASSESSMENT: 1. Status post mechanical fall from standing. 2. Left distal femur fracture, status post repair. 3. Acute kidney injury, resolved. 4. History of hypertension and hyperlipidemia. PLAN: Continue current diet and pain medications. Continue current home medications. Continue Physical and Occupational Therapy as well as supportive care. The patient is pending placement at a senior living facility and she is ready for discharge at this time. This patient will be discussed with Dr. Jaffe after this dictation. Job ID: [id number]
[2019-08-20] MEDS: Amlodipine 5 MG TAB PO SCH (20:52)
--- NOTE | 2019-08-20 23:39 | PRG ---
DATE OF SERVICE: 08/20/2019 SUBJECTIVE: The patient is currently on the surgical floor. She is status post a ground level fall, where she sustained a left distal femur fracture. She has undergone open reduction and internal fixation of same. She has been working with Physical and Occupational Therapy. She is tolerating a diet, and her pain is controlled. OBJECTIVE: VITAL SIGNS: Stable. The patient is afebrile. GENERAL: At time of my exam, the patient was asleep. She appeared in no distress. RESPIRATORY: Her respiratory rate appeared nonlabored. ASSESSMENT: 1. Status post mechanical fall from standing. 2. Left distal femur fracture, status post open reduction and internal fixation of same. 3. Acute kidney injury, resolved. 4. History of hypertension and hyperlipidemia. PLAN: Plan will be to continue supportive care, physical and occupational therapy, and await placement decision. Job ID: [id number]
[2019-08-21] MEDS: traMADol HCl 50 MG TAB PO SCH ×4 (00:11→17:07)
[2019-08-21] MEDS: Acetaminophen 500 MG TAB PO SCH ×4 (00:11→17:07)
[2019-08-21] MEDS: Gabapentin 300 MG CAP PO SCH ×2 (09:01→14:02)
[2019-08-21] MEDS: Polyethylene Glycol 3350 17 GM Packet PO SCH (09:01)
[2019-08-21] MEDS: Ascorbic Acid 500 mg Chewable Tablet PO SCH ×2 (09:01→16:36)
[2019-08-21] MEDS: Ferrous Sulfate 325 MG TAB PO SCH ×2 (09:01→16:37)
[2019-08-21] MEDS: Carvedilol 6.25 MG TAB PO SCH (09:02)
[2019-08-21] MEDS: Heparin 5,000 UNITS/ML VIAL SC SCH ×2 (09:02→14:02)
[2019-08-21 15:20] VITALS: BP 144/86; TEMP 97.9
[2019-08-21] MEDS: traMADol HCl 50 MG TAB PO PRN (16:36)
--- NOTE | 2019-08-22 08:09 | DIS ---
DATE OF ADMISSION: 08/16/2019 DATE OF DISCHARGE: 08/21/2019 ADMISSION DIAGNOSES: Mechanical fall, left distal femur fracture, acute kidney injury. DISCHARGE DIAGNOSES: Mechanical fall, left distal femur fracture, acute kidney injury. CONSULTING PHYSICIAN: Dr. Freitas of Orthopedic Surgery. PROCEDURES: The patient went to the OR on August 16, 2019, had ORIF of the left distal femur. HOSPITAL COURSE: The patient is a 74-year-old female who presented to the emergency department after a mechanical fall with a left distal femur fracture. The patient received a CTA. Subsequently, she also suffered from acute kidney injury, which resolved in this hospitalization. She went to the OR on August 16, 2019 and had ORIF of the left distal femur. Postoperatively, she worked with Physical and Occupational Therapy. At the time of discharge, the patient's pain was well controlled. She was tolerating her diet. She was ambulating with a walker, voiding without issues and having bowel movements. DISCHARGE DISPOSITION: senior care facility. DISCHARGE CONDITION: Satisfactory. PHYSICAL EXAMINATION: VITAL SIGNS: Temperature 97.9, pulse 78, respirations 16, oxygen saturation 95% on room air, and blood pressure 144/86. GENERAL: Well-appearing elderly female, sitting up in bed with no signs of acute distress. PULMONARY: Equal chest rise and fall. Clear breath sounds bilaterally. No signs of acute respiratory distress. CARDIAC: Regular rate and rhythm. No murmurs, gallops, or rubs. GI: Abdomen is soft, nontender, nondistended. EXTREMITIES: 2+ pulses in all extremities. Gross motor and sensation are intact. No significant swelling noted to extremities. NEUROLOGIC: GCS is 15. DISCHARGE INSTRUCTIONS: The patient is discharged to a intermediate facility. Activity as tolerated. Nonweightbearing to the left upper extremity. Regular diet. She is to receive occupational therapy, physical therapy, incentive spirometry, wheelchair and a walker. DISCHARGE MEDICATIONS: Include; 1. Tylenol. 2. Norvasc. 3. Vitamin C. 4. Carvedilol. 5. Flexeril. 6. Ferrous sulfate. 7. Subcu heparin. 8. MiraLAX. 9. Tramadol. FOLLOWUP APPOINTMENTS: The patient is to follow up with Dr. Freitas in 14 days. No need for followup with [facility]. This is a summary of the patient's hospitalization. For full details, please see her medical record in its entirety. Job ID: [id number]
== END 2019-08-21 17:32 | DRG 481 ==
LOC: ERS 17:26 → SURG B 08-16 00:33
PROVIDERS: ADMIT Surgery; ATTEND Surgery
PROC: 0QSC04Z Reposition Left Lower Femur with Internal Fixation Device, Open Approach (ICD-10-PCS; principal; 2019-08-16)
DX: S72.492A Other fracture of lower end of left femur, initial encounter for closed fracture (principal); N17.9 Acute kidney failure, unspecified; J98.11 Atelectasis; I10 Essential (primary) hypertension; W18.30XA Fall on same level, unspecified, initial encounter; E78.5 Hyperlipidemia, unspecified; Z96.642 Presence of left artificial hip joint; Z87.891 Personal history of nicotine dependence; Y92.000 Kitchen of unspecified non-institutional (private) residence as the place of occurrence of the external cause; N14.2 Nephropathy induced by unspecified drug, medicament or biological substance; T50.905A Adverse effect of unspecified drugs, medicaments and biological substances, initial encounter
CPT/HCPCS: 27510; 36415; 36416; 71045; 72170; 76000; 80048; 80053; 83735; 83880; 84100; 85025; 85610; 85730; 93005; 94640; 96374; 96375; 96376; 99156; C1713; C1769; J0131; J0670; J0690; J1100; J1644; J2250; J2270; J2405; J2704; J3010; J3475; J7050; J7620; Q9967; S0020

== ENCOUNTER 2020-08-07 12:28 | Emergency (ER) | payer MEDICARE, OTHER ==
--- NOTE | 2020-08-07 13:11 | RAD ---
XR Shoulder Rt 3 View STANDARD HISTORY: Fall, right shoulder pain FINDINGS: No fracture or dislocation is identified. There are degenerative changes in the acromioclavicular domingo nt.
--- NOTE | 2020-08-07 13:16 | RAD ---
XR Hip Lt 2-3 View INDICATION: Fall COMPARISON: Prior CT the abdomen and pelvis dated May 08, 2019, AP pelvis dated August 15, 2019 and left femur radiographs dated August 15, 2019 FINDINGS: Bones: There is diffuse osteopenia. There is an acute on chronic nondisplaced left inferior pubic maite us fracture. There is a nondisplaced left superior pubic ramus fracture. The left hip endoprosthesis projects in expected position. Visualized proximal aspect of a long Anushka plate constru ct does not appear appreciably changed from the comparison exam. Hip joint: Left hip endoprosthesis projects in expected position. SI joints and symphysis pubis: Radiographically normal. Intrapelvic contents: Visualized bowel gas pattern is within normal limits. Surrounding soft tissues: Radiographically normal. IMPRESSION: 1. Left obturator ring fracture. The left inferior pubic ramus fracture is in the location of a previ ously healed left inferior pubic ramus fracture. There is a nondisplaced left superior pubic ramus fracture present. 2. Left hip endoprosthesis projects in expected position.
[2020-08-07] MEDS ORDERED: Ketorolac Tromethamine 30 MG/ML VIAL ONE (14:07)
== END 2020-08-07 14:38 | disposition home or self-care (01) ==
LOC: ERS 12:28
DX: S32.592A Other specified fracture of left pubis, initial encounter for closed fracture (principal); I10 Essential (primary) hypertension; Z87.891 Personal history of nicotine dependence; W01.0XXA Fall on same level from slipping, tripping and stumbling without subsequent striking against object, initial encounter
CPT/HCPCS: 96372; J1885

== ENCOUNTER 2022-03-01 13:32 | Observation (INO) | payer MEDICARE, MEDICAID ==
[2022-03-01 14:34] LABS: #Eosinphils 0.2 thou/uL (0.0-0.7); #Lymphocytes 1.6 thou/uL (1.20-3.40); #Monocytes 0.4 thou/uL (0.11-0.59); %Basophils 0.5 % (0.0-1.0); %Eosinophils 4.3 % (0.0-10.0); %Lymphocytes 30.9 % (21.0-51.0); %Monocytes 7.8 % (0.0-10.0); %Neutrophils 56.5 % (42.0-75.0); Hemoglobin 13.8 g/dL (12.0-16.0); Mean Corpuscular HGB CONC 33.8 g/dL (32.0-36.0); Mean Corpuscular Hemoglobin 31.8 pg (27.0-31.0); Mean Corpuscular Volume 94.2 fL (78.0-98.0); Mean Platelet Volume 9.1 fL (7.4-10.4); Platelet Count 179 thou/uL (130-400); RBC Distribution Width 12.1 % (11.5-14.5); Red Blood Cell (RBC) Count 4.34 mill/uL (4.20-5.40); White Blood Cell (WBC) Count 5.3 thou/uL (4.8-10.8)
[2022-03-01 14:51] LABS: ALT (SGPT) 15 U/L (8-55); AST (SGOT) 20 U/L (5-34); Albumin 4.2 g/dL (3.4-4.8); Alkaline Phosphatase 56 U/L (40-110); Anion Gap 13 mmol/L (10-20); BUN (Urea Nitrogen) 19 mg/dL (9.8-20.1); Bilirubin, Total 0.7 mg/dL (0.2-1.2); Calc. Creatinine Clearance 0 mL/min (70-130); Calcium 9.8 mg/dL (7.8-10.44); Carbon Dioxide 26 mmol/L (23-31); Chloride 104 mmol/L (98-107); Globulin 3.6 g/dL (2.4-3.5); Glucose 140 mg/dL (83-110); Potassium 3.9 mmol/L (3.5-5.1); Protein, Total 7.8 g/dL (5.8-8.1); Sodium 139 mmol/L (136-145)
[2022-03-01 20:05] VITALS: BMI 25.0
[2022-03-01] MEDS ORDERED: Zolpidem Tartrate 5 MG TAB PO PRN (20:30)
[2022-03-01] MEDS ORDERED: Ondansetron PF 4 MG/2 ML Vial IVP PRN (20:30)
[2022-03-01] MEDS ORDERED: HYDROcodone/Acetaminophen 5/325 mg Tablet PO PRN (20:30)
[2022-03-01] MEDS ORDERED: Bisacodyl 5 MG TAB PO PRN (20:30)
[2022-03-01] MEDS ORDERED: Acetaminophen 325 MG TAB PO PRN (20:30)
[2022-03-01] MEDS ORDERED: Aspirin 81 mg Enteric Coated Tablet PO SCH (21:00)
[2022-03-01] MEDS ORDERED: Gabapentin 100 MG CAP PO SCH (21:00)
[2022-03-01] MEDS: Amlodipine 5 MG TAB PO SCH (21:08)
[2022-03-01] MEDS: Sodium Chloride 0.9% 1,000 ML IV SCH (21:09)
[2022-03-01] MEDS: Famotidine 20 MG TAB PO SCH (21:09)
[2022-03-01] MEDS ORDERED: Gabapentin 100 MG CAP PO PRN (21:10)
[2022-03-01 21:43] LABS: Bacteria/HPF None Seen HPF (None Seen); Bilirubin Negative (Negative); Blood, Urine Negative (Negative); Clarity Clear (Clear); Glucose, Urine (Dipstick) Normal (Negative); Ketone, Urine Negative (Negative); Leukocyte 25 Leu/uL (Negative); Nitrite Negative (Negative); Protein, Urine (Dipstick) Negative (Neg-Trace); RBC/HPF 0-3 HPF (0-3); Specific Gravity, Urine 1.009 (1.002-1.036); Squamous Epithelial 0-3 HPF (0-3); Urobilinogen Normal mg/dL (Less than 2); WBC/HPF 0-3 HPF (0-3)
[2022-03-01 21:44] LABS: Urine Culture Reflex Yes Yes
[2022-03-02 05:42] LABS: #Eosinphils 0.2 thou/uL (0.0-0.7); #Lymphocytes 1.6 thou/uL (1.20-3.40); #Monocytes 0.4 thou/uL (0.11-0.59); #Neutrophils 2.7 thou/uL (1.40-6.50); %Basophils 0.3 % (0.0-1.0); %Eosinophils 4.1 % (0.0-10.0); %Lymphocytes 32.6 % (21.0-51.0); %Monocytes 8.4 % (0.0-10.0); %Neutrophils 54.5 % (42.0-75.0); Hemoglobin 12.9 g/dL (12.0-16.0); Mean Corpuscular HGB CONC 34.9 g/dL (32.0-36.0); Mean Corpuscular Hemoglobin 31.9 pg (27.0-31.0); Mean Corpuscular Volume 91.4 fL (78.0-98.0); Mean Platelet Volume 8.7 fL (7.4-10.4); Platelet Count 177 thou/uL (130-400); RBC Distribution Width 12.2 % (11.5-14.5); Red Blood Cell (RBC) Count 4.02 mill/uL (4.20-5.40)
[2022-03-02 06:05] LABS: Albumin 3.8 g/dL (3.4-4.8); Anion Gap 11 mmol/L (10-20); BUN (Urea Nitrogen) 17 mg/dL (9.8-20.1); BUN/Creatinine Ratio 22.37; Calc. Creatinine Clearance 50 mL/min (70-130); Calcium 9.2 mg/dL (7.8-10.44); Carbon Dioxide 26 mmol/L (23-31); Cardiac Risk 5.3 (Less than 4.5); Chloride 108 mmol/L (98-107); Cholesterol 219 mg/dl (< 200 Desired); Glucose 98 mg/dL (83-110); HDL Cholesterol 41 mg/dL (>60 Neg Risk); LDL Cholesterol, Calculated 134 mg/dL; Phosphorus 3.7 mg/dL (2.3-4.7); Potassium 3.8 mmol/L (3.5-5.1); Sodium 141 mmol/L (136-145); Triglycerides 221 mg/dL (Less than 150)
[2022-03-02] MEDS: Sodium Chloride 0.9% 1,000 ML IV SCH (08:57)
[2022-03-02] MEDS: Carvedilol 25 MG TAB PO SCH (08:58)
[2022-03-02] MEDS: Aspirin 81 mg Enteric Coated Tablet PO SCH (08:59)
[2022-03-02] MEDS: Enoxaparin Sodium 40 MG/0.4 ML SYRINGE SC SCH (08:59)
[2022-03-02] MEDS ORDERED: Clopidogrel Bisulfate 75 MG TAB PO SCH (09:00)
[2022-03-02] MEDS ORDERED: Albuterol Sulfate 2.5 mg/3 ml Neb NEB PRN (09:59)
[2022-03-02] MEDS ORDERED: Artificial Tear Sol 15 ML BOT L EYE PRN (14:29)
[2022-03-02] MEDS ORDERED: Meclizine HCl 25 MG TAB PO SCH (15:00)
[2022-03-02] MEDS: Meclizine HCl 25 MG TAB PO SCH ×2 (20:19→22:03)
[2022-03-02] MEDS: Amlodipine 5 MG TAB PO SCH (20:19)
[2022-03-02] MEDS: Famotidine 20 MG TAB PO SCH (20:19)
[2022-03-02] MEDS ORDERED: Atorvastatin Calcium 40 MG TAB PO SCH (21:00)
[2022-03-03] MEDS: Meclizine HCl 25 MG TAB PO SCH ×2 (05:46→15:14)
[2022-03-03 05:49] LABS: #Basophils 0.1 thou/uL (0.0-0.2); #Eosinphils 0.2 thou/uL (0.0-0.7); #Lymphocytes 2.1 thou/uL (1.20-3.40); #Monocytes 0.4 thou/uL (0.11-0.59); #Neutrophils 2.5 thou/uL (1.40-6.50); %Eosinophils 4.3 % (0.0-10.0); %Monocytes 7.8 % (0.0-10.0); %Neutrophils 46.9 % (42.0-75.0); Hemoglobin 13.7 g/dL (12.0-16.0); Mean Corpuscular HGB CONC 33.7 g/dL (32.0-36.0); Mean Corpuscular Hemoglobin 31.4 pg (27.0-31.0); Mean Corpuscular Volume 93.3 fL (78.0-98.0); Platelet Count 173 thou/uL (130-400); RBC Distribution Width 12.1 % (11.5-14.5); Red Blood Cell (RBC) Count 4.38 mill/uL (4.20-5.40); White Blood Cell (WBC) Count 5.4 thou/uL (4.8-10.8)
[2022-03-03 06:07] LABS: Anion Gap 11 mmol/L (10-20); BUN (Urea Nitrogen) 18 mg/dL (9.8-20.1); Calc. Creatinine Clearance 46 mL/min (70-130); Calcium 9.3 mg/dL (7.8-10.44); Carbon Dioxide 26 mmol/L (23-31); Chloride 104 mmol/L (98-107); Glucose 97 mg/dL (83-110); Potassium 4.1 mmol/L (3.5-5.1); Sodium 137 mmol/L (136-145)
[2022-03-03] MEDS: Carvedilol 25 MG TAB PO SCH (08:50)
[2022-03-03] MEDS: Aspirin 81 mg Enteric Coated Tablet PO SCH (08:50)
[2022-03-03] MEDS: Enoxaparin Sodium 40 MG/0.4 ML SYRINGE SC SCH (08:54)
[2022-03-03 11:44] VITALS: TEMP 97.3
[2022-03-03 12:47] VITALS: BP 105/58
== END 2022-03-03 16:30 | disposition home or self-care (01) ==
LOC: ERS 13:32 → NEURO 18:33
PROVIDERS: ADMIT Internal Medicine; ATTEND Internal Medicine
DX: R42 Dizziness and giddiness (principal); I10 Essential (primary) hypertension; G89.29 Other chronic pain; M25.562 Pain in left knee; E78.5 Hyperlipidemia, unspecified; G47.9 Sleep disorder, unspecified; Z87.891 Personal history of nicotine dependence; Z79.899 Other long term (current) drug therapy
CPT/HCPCS: 70450; 70551; 71045; 80048; 80061; 80069; 81001; 83090; 84484; 85025 ×2; 87077; 87086; 93005; 93880; 97116; 97139 ×6; 97535; 99285; U0003; U0005; 36415; 80053; 84443; 96372; G0378; J1650; J7050

== ENCOUNTER 2022-06-11 08:24 | Observation (INO) | payer OTHER, MEDICAID ==
[2022-06-11] MEDS ORDERED: Fentanyl 100 MCG/2 ML VIAL ONE ×3 (08:47→14:29)
[2022-06-11] MEDS ORDERED: Ondansetron PF 4 MG/2 ML Vial ONE ×2 (08:48→12:55)
[2022-06-11 09:38] LABS: #Eosinphils 0.3 thou/uL (0.0-0.7); #Lymphocytes 1.4 thou/uL (1.20-3.40); #Monocytes 0.3 thou/uL (0.11-0.59); #Neutrophils 5.2 thou/uL (1.40-6.50); %Basophils 0.2 % (0.0-1.0); %Eosinophils 4.2 % (0.0-10.0); %Lymphocytes 18.8 % (21.0-51.0); %Monocytes 4.5 % (0.0-10.0); %Neutrophils 72.3 % (42.0-75.0); Hemoglobin 12.9 g/dL (12.0-16.0); Mean Corpuscular HGB CONC 33.5 g/dL (32.0-36.0); Mean Corpuscular Volume 92.6 fL (78.0-98.0); Platelet Count 158 thou/uL (130-400); RBC Distribution Width 11.9 % (11.5-14.5); Red Blood Cell (RBC) Count 4.17 mill/uL (4.20-5.40); White Blood Cell (WBC) Count 7.2 thou/uL (4.8-10.8)
[2022-06-11 09:57] LABS: INR-International Normal Ratio 0.9; PTT 23.9 sec (22.9-36.1); Prothrombin Time 12.6 sec (12.0-14.7)
[2022-06-11 09:58] LABS: ALT (SGPT) 16 U/L (8-55); AST (SGOT) 22 U/L (5-34); Albumin 4.2 g/dL (3.4-4.8); Alkaline Phosphatase 62 U/L (40-110); Anion Gap 13 mmol/L (10-20); BUN (Urea Nitrogen) 16 mg/dL (9.8-20.1); Bilirubin, Total 1.2 mg/dL (0.2-1.2); Calc. Creatinine Clearance 0 mL/min (70-130); Calcium 9.2 mg/dL (7.8-10.44); Carbon Dioxide 22 mmol/L (23-31); Chloride 106 mmol/L (98-107); Estimated GFR 71; Globulin 3.2 g/dL (2.4-3.5); Glucose 131 mg/dL (83-110); Potassium 4.1 mmol/L (3.5-5.1); Protein, Total 7.4 g/dL (5.8-8.1); Sodium 137 mmol/L (136-145)
[2022-06-11] MEDS ORDERED: CEFAZOLIN 1 GM VIAL ONE ×2 (10:10→12:35)
[2022-06-11] MEDS ORDERED: Boostrix 0.5 ML (Tdap) VIAL (>/=7 yrs of age) ONE (10:11)
[2022-06-11] MEDS ORDERED: CEFAZOLIN 1 GM in Sodium Chloride 0.9% 100 ML IVPB SCH (11:00)
[2022-06-11 11:27] LABS: SARS-CoV-2 NAA Rapid Test Not Detected (NotDetected)
[2022-06-11] MEDS ORDERED: hydrALAZINE 20 MG/ML VIAL SLOW IVP PRN (11:52)
[2022-06-11] MEDS ORDERED: Ondansetron PF 4 MG/2 ML Vial IVP PRN (11:52)
[2022-06-11] MEDS ORDERED: Promethazine HCl 25 MG/ML VIAL IM PRN ×2 (11:52→14:06)
[2022-06-11] MEDS ORDERED: Meclizine HCl 25 MG TAB PO PRN (11:54)
[2022-06-11] MEDS ORDERED: Artificial Tear Sol 15 ML BOT L EYE PRN (11:54)
[2022-06-11] MEDS ORDERED: Gabapentin 100 MG CAP PO PRN (11:54)
[2022-06-11] MEDS ORDERED: fentaNYL Citrate/PF 100 MCG/2 ML SYRINGE ONE (12:01)
[2022-06-11] MEDS ORDERED: Sodium Chloride 0.9% 100 ML ONE (12:35)
[2022-06-11] MEDS ORDERED: PROPOFOL 200 MG/20 ML VIAL ONE (12:55)
[2022-06-11] MEDS ORDERED: ePHEDrine 50 MG/ML VIAL ONE (12:55)
[2022-06-11] MEDS ORDERED: Dexamethasone 20 MG/5 ML VIAL ONE (12:55)
[2022-06-11] MEDS ORDERED: Lidocaine 1% MPF 2 ML VIAL ONE (12:55)
[2022-06-11] MEDS ORDERED: Promethazine HCl 25 MG/ML VIAL IVPB PRN (14:06)
[2022-06-11] MEDS ORDERED: Ondansetron HCl/PF 4 MG/2 ML Vial IVP PRN (14:06)
[2022-06-11] MEDS ORDERED: HYDROmorphone 0.5 MG/0.5 ML SYRINGE ONE (14:42)
[2022-06-11] MEDS: Sodium Chloride 0.9% 1,000 ML IV SCH ×2 (16:44→20:31)
[2022-06-11] MEDS ORDERED: Morphine 2 MG/ML VIAL SLOW IVP PRN (17:57)
[2022-06-11 18:06] VITALS: BMI 23.0
[2022-06-11] MEDS: Acetaminophen 325 MG TAB PO SCH (18:28)
[2022-06-11] MEDS: Acetaminophen/Codeine 30-300mg Tablet PO SCH (18:29)
[2022-06-11] MEDS: Ibuprofen 200 MG TAB PO SCH (20:19)
[2022-06-11] MEDS: CEFAZOLIN 2 GM in Sodium Chloride 0.9% 100 ML IVPB SCH (20:23)
[2022-06-11] MEDS ORDERED: Atorvastatin Calcium 40 MG TAB PO SCH (21:00)
[2022-06-11] MEDS ORDERED: Amlodipine 5 MG TAB PO SCH (21:00)
[2022-06-11] MEDS ORDERED: Famotidine/PF 20 mg/2ml Vial SLOW IVP SCH (21:00)
[2022-06-12] MEDS: Acetaminophen 325 MG TAB PO SCH ×3 (00:15→11:00)
[2022-06-12] MEDS: Acetaminophen/Codeine 30-300mg Tablet PO SCH ×3 (00:16→11:00)
[2022-06-12] MEDS: CEFAZOLIN 2 GM in Sodium Chloride 0.9% 100 ML IVPB SCH (03:06)
[2022-06-12] MEDS: Ibuprofen 200 MG TAB PO SCH (05:31)
[2022-06-12] MEDS: Sodium Chloride 0.9% 1,000 ML IV SCH (05:32)
[2022-06-12 05:45] LABS: #Lymphocytes 1.1 thou/uL (1.20-3.40); #Monocytes 0.4 thou/uL (0.11-0.59); #Neutrophils 7.9 thou/uL (1.40-6.50); %Basophils 0.1 % (0.0-1.0); %Eosinophils 0.1 % (0.0-10.0); %Lymphocytes 11.5 % (21.0-51.0); %Monocytes 4.2 % (0.0-10.0); Hemoglobin 12.2 g/dL (12.0-16.0); Mean Corpuscular HGB CONC 33.9 g/dL (32.0-36.0); Mean Corpuscular Hemoglobin 31.7 pg (27.0-31.0); Mean Corpuscular Volume 93.5 fL (78.0-98.0); Mean Platelet Volume 9.1 fL (7.4-10.4); Platelet Count 152 thou/uL (130-400); Red Blood Cell (RBC) Count 3.86 mill/uL (4.20-5.40); White Blood Cell (WBC) Count 9.4 thou/uL (4.8-10.8)
[2022-06-12 06:03] LABS: Anion Gap 15 mmol/L (10-20); BUN (Urea Nitrogen) 14 mg/dL (9.8-20.1); Calc. Creatinine Clearance 51 mL/min (70-130); Calcium 8.9 mg/dL (7.8-10.44); Carbon Dioxide 21 mmol/L (23-31); Chloride 106 mmol/L (98-107); Estimated GFR 71; Glucose 128 mg/dL (83-110); Magnesium 1.9 mg/dL (1.6-2.6); Phosphorus 2.6 mg/dL (2.3-4.7); Sodium 138 mmol/L (136-145)
[2022-06-12] MEDS ORDERED: Famotidine/PF 20 mg/2ml Vial SLOW IVP SCH (09:00)
[2022-06-12 09:49] VITALS: BP 116/56; TEMP 98
[2022-06-12] MEDS ORDERED: TETANUS, DIPHTHERIA TOX,ADULT (TDVAX) 0.5 ML VIAL IM ONE (11:52)
[2022-06-13] MEDS ORDERED: Gabapentin 100 MG CAP PO SCH (09:00)
[2022-06-13] MEDS ORDERED: Aspirin 81 mg Enteric Coated Tablet PO SCH (09:00)
[2022-06-13] MEDS ORDERED: Famotidine 20 MG TAB PO SCH (09:00)
== END 2022-06-12 12:16 | disposition home or self-care (01) ==
LOC: ERS 08:24 → SDC 11:33 → SURG A 11:33
PROVIDERS: ADMIT Surgery; ATTEND Surgery
PROC: 0PSJ04Z Reposition Left Radius with Internal Fixation Device, Open Approach (ICD-10-PCS; principal; 2022-06-11)
DX: S52.572B Other intraarticular fracture of lower end of left radius, initial encounter for open fracture type I or II (principal); S52.692B Other fracture of lower end of left ulna, initial encounter for open fracture type I or II; R00.1 Bradycardia, unspecified; I10 Essential (primary) hypertension; E78.00 Pure hypercholesterolemia, unspecified; Z87.81 Personal history of (healed) traumatic fracture; Z79.82 Long term (current) use of aspirin; Z79.899 Other long term (current) drug therapy; Z20.822 Contact with and (suspected) exposure to COVID-19; W01.0XXA Fall on same level from slipping, tripping and stumbling without subsequent striking against object, initial encounter
CPT/HCPCS: 25608; 71045; 73090; 73100; 76000; 80048; 80053; 83735; 84100; 85025 ×2; 85610; 85730; 86850; 86900; 86901; 90715; 93005; 96365; 96375; 96376; C1713 ×3; G0378 ×3; U0002; 25600; 36415; 90471; 96374; J0690; J1100; J1170; J2405; J2704; J3010; J3490; S0028

== ENCOUNTER 2022-06-26 10:33 | Emergency (ER) | payer OTHER | END 2022-06-26 11:50 | disposition home or self-care (01) | LOC: ERS 10:33 | DX: S61.512D Laceration without foreign body of left wrist, subsequent encounter (principal); Z48.02 Encounter for removal of sutures ==

== ENCOUNTER 2025-08-07 19:20 | Inpatient (IN) | payer OTHER, MEDICAID ==
[~2025-08-07 19:20] MED LIST changes: -Iopamidol-370 76% 500 ML 1 ML ONE; +Iopamidol-370 76% 500 ML MDV (1 ML CHARGE) ONE
[2025-08-07 20:05] LABS: #Basophils 0.05 10x3/uL (0.0-0.2); #Eosinophils 0.27 10x3/uL (0.0-0.7); #Monocytes 0.56 10x3/uL (0.11-0.59); #Neutrophils 7.03 10x3/uL (1.40-6.50); %Basophils 0.5 % (0.0-1.0); %Eosinophils 2.8 % (0.0-10.0); %Lymphocytes 18.1 % (21.0-51.0); %Monocytes 5.8 % (0.0-10.0); %Neutrophils 72.5 % (42.0-75.0); Hematocrit 43.2 % (36.0-47.0); Hemoglobin 14.3 g/dL (12.0-16.0); Mean Corpuscular Hemoglobin 29.4 pg (27.0-31.0); Mean Corpuscular Volume 88.7 fL (78.0-98.0); Platelet Count 193 10x3/uL (130-400); Red Blood Cell (RBC) Count 4.87 mill/uL (4.20-5.40); White Blood Cell (WBC) Count 9.70 10x3/uL (4.8-10.8)
[2025-08-07 20:18] LABS: ALT (SGPT) 15 U/L (Less than 34); AST (SGOT) 28 U/L (11-34); Albumin 4.5 g/dL (3.1-4.5); Alkaline Phosphatase 65 U/L (40-110); Anion Gap 12 mmol/L (10-20); BUN (Urea Nitrogen) 18 mg/dL (9.8-20.1); Bilirubin, Total 1.0 mg/dL (0.3-1.2); Calc. Creatinine Clearance 0 mL/min (70-130); Calcium 9.8 mg/dL (7.8-10.44); Carbon Dioxide 27 mmol/L (23-31); Chloride 101 mmol/L (98-107); Globulin 3.7 g/dL (2.4-3.5); Glucose 139 mg/dL (83-110); Potassium 3.9 mmol/L (3.5-5.1); Sodium 136 mmol/L (136-145)
[2025-08-07] MEDS ORDERED: Ondansetron PF 4 MG/2 ML Vial ONE ×2 (20:20→21:27)
[2025-08-07 20:21] LABS: Bacteria/HPF None Seen HPF (None Seen); CAUTI Indications for Culture Pelvic or flank pain; Glucose, Urine (Dipstick) Normal (Negative); Leukocyte 250 Leu/uL (Negative); Protein, Urine (Dipstick) Negative (Neg-Trace); RBC/HPF 0-3 HPF (0-3); Specific Gravity, Urine 1.017 (1.002-1.036)
[2025-08-07 20:22] LABS: Urine Culture Reflex No No
[2025-08-07] MEDS ORDERED: hydrALAZINE 20 MG/ML VIAL SLOW IVP PRN (22:44)
[2025-08-07] MEDS ORDERED: Ondansetron PF 4 MG/2 ML Vial IVP PRN (22:44)
[2025-08-08] MEDS: Benzocaine 20% Spray 60 ML CAN PO SCH (00:28)
[2025-08-08 01:04] VITALS: BMI 24.6
[2025-08-08 05:42] LABS: #Basophils 0.03 10x3/uL (0.0-0.2); #Eosinophils 0.18 10x3/uL (0.0-0.7); #Monocytes 0.58 10x3/uL (0.11-0.59); #Neutrophils 5.13 10x3/uL (1.40-6.50); %Basophils 0.4 % (0.0-1.0); %Eosinophils 2.4 % (0.0-10.0); %Lymphocytes 21.7 % (21.0-51.0); %Monocytes 7.6 % (0.0-10.0); %Neutrophils 67.5 % (42.0-75.0); Hematocrit 37.2 % (36.0-47.0); Hemoglobin 12.1 g/dL (12.0-16.0); Mean Corpuscular Hemoglobin 29.6 pg (27.0-31.0); Mean Corpuscular Volume 91.0 fL (78.0-98.0); Platelet Count 163 10x3/uL (130-400); Red Blood Cell (RBC) Count 4.09 mill/uL (4.20-5.40); White Blood Cell (WBC) Count 7.60 10x3/uL (4.8-10.8)
[2025-08-08 05:57] LABS: Anion Gap 12 mmol/L (10-20); BUN (Urea Nitrogen) 16 mg/dL (9.8-20.1); Calc. Creatinine Clearance 48 mL/min (70-130); Calcium 9.1 mg/dL (7.8-10.44); Carbon Dioxide 28 mmol/L (23-31); Chloride 102 mmol/L (98-107); Glucose 112 mg/dL (83-110); Potassium 4.0 mmol/L (3.5-5.1); Sodium 138 mmol/L (136-145)
[2025-08-08] MEDS ORDERED: MD-Gastroview 120 ML BOT ONE (06:59)
[2025-08-08] MEDS ORDERED: Acetaminophen 325 MG TAB PO PRN (12:29)
[2025-08-08] MEDS: Acetaminophen/Codeine 30-300mg Tablet PO PRN (14:45)
[2025-08-09 05:23] LABS: #Basophils 0.05 10x3/uL (0.0-0.2); #Eosinophils 0.13 10x3/uL (0.0-0.7); #Monocytes 0.55 10x3/uL (0.11-0.59); #Neutrophils 6.79 10x3/uL (1.40-6.50); %Basophils 0.5 % (0.0-1.0); %Eosinophils 1.4 % (0.0-10.0); %Lymphocytes 17.4 % (21.0-51.0); %Monocytes 6.0 % (0.0-10.0); %Neutrophils 74.4 % (42.0-75.0); Hematocrit 38.9 % (36.0-47.0); Hemoglobin 12.6 g/dL (12.0-16.0); Mean Corpuscular Hemoglobin 29.5 pg (27.0-31.0); Mean Corpuscular Volume 91.1 fL (78.0-98.0); Platelet Count 161 10x3/uL (130-400); Red Blood Cell (RBC) Count 4.27 mill/uL (4.20-5.40); White Blood Cell (WBC) Count 9.14 10x3/uL (4.8-10.8)
[2025-08-09 05:33] LABS: Anion Gap 15 mmol/L (10-20); BUN (Urea Nitrogen) 10 mg/dL (9.8-20.1); Calc. Creatinine Clearance 59 mL/min (70-130); Calcium 8.9 mg/dL (7.8-10.44); Carbon Dioxide 27 mmol/L (23-31); Chloride 102 mmol/L (98-107); Glucose 105 mg/dL (83-110); Potassium 3.5 mmol/L (3.5-5.1); Sodium 140 mmol/L (136-145)
[2025-08-09] MEDS: Phenol 177 ML BOT PO SCH (11:21)
[2025-08-09 13:38] VITALS: BP 168/81; TEMP 98
[2025-08-11] MEDS ORDERED: PNEUMOC 20-VAL CONJ-DIP CRM/PF 0.5 ML SYRINGE IM ONE (09:00)
[2025-08-11] MEDS ORDERED: FLU (Fluad Triv) 25-26 (65UP)PF 45 MCG/0.5 ML Syringe IM ONE (09:00)
== END 2025-08-09 13:30 | disposition home or self-care (01) | DRG 395 ==
LOC: ERS 19:20 → ERHOLD 22:49 → T4-B 23:48
PROVIDERS: ADMIT Surgery; ATTEND Surgery
DX: K40.90 Unilateral inguinal hernia, without obstruction or gangrene, not specified as recurrent (principal); E78.5 Hyperlipidemia, unspecified; Z98.890 Other specified postprocedural states; E11.9 Type 2 diabetes mellitus without complications; Z79.899 Other long term (current) drug therapy
CPT/HCPCS: 36415; 36416; 43752; 74018; 74177; 74250; 80048; 80053; 81001; 83605; 85025; 96374; 96375; 96376; J2270; J2272; J2405; J3010; J7120; Q9963; Q9967